=== PATIENT | female | born 1975 | race Caucasian/White ===

== ENCOUNTER 2019-04-14 09:52 | Emergency (ER) | payer BC, OTHER ==
[~2019-04-14] VITALS: Ht 157.5 cm; Wt 100.0 kg
[2019-04-14] MEDS ORDERED: morphine 4 MG/ML inj SYRINge IV ONE (10:30)
[2019-04-14] MEDS ORDERED: LORazepam 2 mg/ml vial IV ONE (10:30)
[2019-04-14] MEDS ORDERED: NO HOME MEDS (11:30)
[2019-04-14 11:38] LABS: CLARITY,URINE SLIGHTLY CLOUDY (Clear); COLOR,URINE YELLOW (Yellow); GLUCOSE, URINE NEGATIVE (Neg); KETONES,URINE NEGATIVE (Neg); LEUKOCYTE ESTERASE ,URINE NEGATIVE (Neg); NITRITES, URINE POSITIVE (Neg); OCCULT BLOOD,URINE NEGATIVE (Neg); PROTEIN,URINE NEGATIVE (Neg); UROBILINOGEN,URINE 0.2 E.U/dL (0.2-1.0)
[2019-04-14 11:39] LABS: UA COLLECTION TYPE CLN CATCH MIDSTREAM
[2019-04-14 11:44] LABS: RBC,URINE 0-2 /HPF (0-2); WBC,URINE 0-4 /HPF (0-4)
[2019-04-14 11:45] LABS: BACTERIA,URINE 4+ /HPF (Neg); SQUAMOUS EPITHELIAL CELL,UR MODERATE /LPF (FEW); TRANSITIONAL EPI CELLS,URINE FEW /HPF
[2019-04-14] MEDS ORDERED: CYCL-1 PO (13:35)
[2019-04-14] MEDS ORDERED: PRED20TA PO (13:35)
[2019-04-14 13:49] VITALS: BP 103/57
== END 2019-04-14 13:54 | disposition home or self-care (01) ==
LOC: ER 09:53
DX: S33.5XXA Sprain of ligaments of lumbar spine, initial encounter (principal); M54.41 Lumbago with sciatica, right side; Z88.0 Allergy status to penicillin; Z79.899 Other long term (current) drug therapy; X50.1XXA Overexertion from prolonged static or awkward postures, initial encounter; Y93.89 Activity, other specified; Y92.89 Other specified places as the place of occurrence of the external cause; Y99.8 Other external cause status
CPT/HCPCS: 72146; 72148; 81001; 96374; 96375; 99284; J2060; J2270

== ENCOUNTER 2022-02-27 11:05 | Inpatient (IN) | payer BC, OTHER ==
[2022-02-27] VITALS (13 sets, daily range): BP systolic 91–108; BP diastolic 51–66
[~2022-02-27] VITALS: Ht 157.5 cm; Wt 68.2 kg
[~2022-02-27 11:05] MED LIST: CYCL-1 PO; NO HOME MEDS
[2022-02-27] MEDS ORDERED: normal saline 1000ML IV soln IVB ONE (12:15)
[2022-02-27] MEDS ORDERED: pantoprazole 40mg IV 80 MG in normal saline 100ml IV soln 100 ML IV ONE (12:15)
[2022-02-27 13:31] LABS: MEAN CORPUSCULAR HEMOGLOBIN 15.5 PG (27.0-31.0); MEAN CORPUSCULAR HGB CONC 26.5 g/dL (33.0-36.5); MEAN CORPUSCULAR VOLUME 58.8 FL (78-98); MEAN PLATELET VOLUME 8.6 FL (7.4-10.4); PLATELET COUNT 150 X10'3 (140-440); RED CELL DISTRIBUTION WIDTH 23.5 % (11.5-14.5); WHITE BLOOD COUNT 4.8 X10'3 (4.5-11.0)
[2022-02-27 13:39] LABS: ALANINE AMINOTRANSFERASE 19 U/L (12-78); ALBUMIN 2.8 G/DL (3.4-5.0); ALBUMIN/GLOBULIN RATIO 0.8 (1.1-1.5); ALKALINE PHOSPHATASE 68 IU/L (46-116); ANION GAP 9 (8-16); ASPARTATE AMINO TRANSFERASE 21 U/L (10-37); BILIRUBIN,TOTAL 0.5 MG/DL (0.1-1.0); BLOOD UREA NITROGEN 11 MG/DL (7-18); BUN/CREATININE RATIO 13.6 (6.6-38.0); CALCIUM 8.1 MG/DL (8.5-10.1); CHLORIDE 105 MMOL/L (99-107); CREATININE 0.81 MG/DL (0.40-0.90); GLUCOSE 89 MG/DL (70-104); POTASSIUM 3.8 MMOL/L (3.5-5.1); SODIUM 139 MMOL/L (135-145); TOTAL CARBON DIOXIDE 25.5 MMOL/L (24-32); TOTAL PROTEIN 6.2 G/DL (6.4-8.2); eGFR 76 ML/MIN
[2022-02-27 13:40] LABS: HEMATOCRIT 12.3 % (35.0-45.0); HEMOGLOBIN 3.3 g/dl (12.0-16.0)
[2022-02-27 14:38] LABS: ANISOCYTOSIS 3+; HYPOCHROMASIA 3+; MICROCYTOSIS 3+; PLATELET ESTIMATE NORMAL; TOTAL CELLS COUNTED 100
[2022-02-27 14:39] LABS: POLYCHROMASIA 2+; TEAR DROP CELLS 1+
[2022-02-27 14:40] LABS: SCHISTOCYTES FEW; TARGET CELLS 1+
[2022-02-27] MEDS ORDERED: POTA8CAP20 PO (15:58)
[2022-02-27] MEDS ORDERED: GABA-530 PO (15:58)
[2022-02-27] MEDS ORDERED: BACL20TA PO (15:58)
[2022-02-27] MEDS ORDERED: HYDR-3973 PO (15:58)
[2022-02-27] MEDS ORDERED: FURO20TA4 PO (15:58)
[2022-02-27] MEDS ORDERED: magnesium Cl slow-release 64mg tablet PO PRN (16:10)
[2022-02-27] MEDS ORDERED: potassium Cl 40MEQ/1/2NS 520ml 520 ML IV PRN (16:10)
[2022-02-27] MEDS ORDERED: magnesium 4gm in 100ml NS 100 ML IV PRN (16:10)
[2022-02-27] MEDS ORDERED: ondansetron/PF 4mg/2ml inj IV PRN (16:10)
[2022-02-27] MEDS ORDERED: acetaminophen 325mg tablet PO PRN (16:10)
[2022-02-27] MEDS ORDERED: magnesium hydroxide 30ml (MOM) UD suspension PO PRN (16:10)
[2022-02-27] MEDS ORDERED: potassium Cl 20 mEq SR tablet PO PRN ×2 (16:10)
[2022-02-27] MEDS ORDERED: mag hydrox/Alum hydrox/simeth 30ml oral suspension PO PRN (16:10)
[2022-02-27] MEDS: normal saline 1000ml 1,000 ML IV SCH (16:25)
[2022-02-27 16:59] LABS: CLARITY,URINE SLIGHTLY CLOUDY (Clear); COLOR,URINE STRAW (Yellow); GLUCOSE, URINE NEGATIVE (Neg); KETONES,URINE NEGATIVE (Neg); LEUKOCYTE ESTERASE ,URINE NEGATIVE (Neg); NITRITES, URINE NEGATIVE (Neg); OCCULT BLOOD,URINE NEGATIVE (Neg); PROTEIN,URINE NEGATIVE (Neg); UROBILINOGEN,URINE 0.2 E.U/dL (0.2-1.0)
[2022-02-27 17:04] LABS: UA COLLECTION TYPE CLN CATCH MIDSTREAM
[2022-02-27 17:05] LABS: BACTERIA,URINE 4+ /HPF (Neg); MUCUS STRANDS NONE SEEN /LPF (Neg); RBC,URINE NONE SEEN /HPF (0-2); SQUAMOUS EPITHELIAL CELL,UR FEW /LPF (FEW); WBC,URINE 0-4 /HPF (0-4)
[2022-02-27] MEDS: K and/or MAG REPLACEMENT MC SCH (20:00)
[2022-02-27] MEDS: docusate sod 100mg capsule PO SCH (20:00)
[2022-02-27] MEDS: pantoprazole 40mg Tablet.DR PO SCH (20:19)
[2022-02-27 21:25] LABS: MEAN CORPUSCULAR HGB CONC 29.6 g/dL (33.0-36.5); MEAN CORPUSCULAR VOLUME 67.5 FL (78-98); MEAN PLATELET VOLUME 8.7 FL (7.4-10.4); PLATELET COUNT 135 X10'3 (140-440); RED BLOOD COUNT 2.95 X10'6 (4.20-5.60); RED CELL DISTRIBUTION WIDTH 30.5 % (11.5-14.5); WHITE BLOOD COUNT 4.5 X10'3 (4.5-11.0)
[2022-02-27 21:32] LABS: HEMATOCRIT 19.9 % (35.0-45.0); HEMOGLOBIN 5.9 g/dl (12.0-16.0)
[2022-02-28] VITALS (12 sets, daily range): BP systolic 93–112; BP diastolic 54–71
[2022-02-28] MEDS: normal saline 1000ml 1,000 ML IV SCH ×3 (02:10→22:10)
[2022-02-28] MEDS ORDERED: gabapentin 400mg capsule PO PRN (04:10)
[2022-02-28] MEDS ORDERED: HYDROcodone/acetaminophen 10/325mg tab PO ONE (04:10)
[2022-02-28 04:37] LABS: BASOPHILS % (AUTO) 0.4 % (0-1); EOSINOPHILS # (AUTO) 0.1 X10'3 (0-0.9); EOSINOPHILS % (AUTO) 1.4 % (0-6); HEMATOCRIT 27.1 % (35.0-45.0); HEMOGLOBIN 8.4 g/dl (12.0-16.0); LYMPHOCYTES # (AUTO) 2.9 X10'3 (1.1-4.8); LYMPHOCYTES % (AUTO) 50.2 % (21-51); MEAN CORPUSCULAR HEMOGLOBIN 22.4 PG (27.0-31.0); MEAN CORPUSCULAR HGB CONC 31.1 g/dL (33.0-36.5); MEAN CORPUSCULAR VOLUME 72.3 FL (78-98); MEAN PLATELET VOLUME 9.3 FL (7.4-10.4); MONOCYTES # (AUTO) 0.4 X10'3 (0-0.9); MONOCYTES % (AUTO) 7.6 % (2-12); NEUTROPHILS # (AUTO) 2.3 X10'3 (1.8-7.7); NEUTROPHILS % (AUTO) 40.4 % (42-75); PLATELET COUNT 138 X10'3 (140-440); RED BLOOD COUNT 3.75 X10'6 (4.20-5.60); RED CELL DISTRIBUTION WIDTH 31.5 % (11.5-14.5); WHITE BLOOD COUNT 5.7 X10'3 (4.5-11.0)
[2022-02-28 04:44] LABS: ALBUMIN 2.7 G/DL (3.4-5.0); ANION GAP 8 (8-16); BLOOD UREA NITROGEN 9 MG/DL (7-18); BUN/CREATININE RATIO 12.2 (6.6-38.0); CALCIUM 8.1 MG/DL (8.5-10.1); CHLORIDE 110 MMOL/L (99-107); CREATININE 0.74 MG/DL (0.40-0.90); GLUCOSE 86 MG/DL (70-104); POTASSIUM 3.9 MMOL/L (3.5-5.1); SODIUM 143 MMOL/L (135-145); TOTAL CARBON DIOXIDE 24.7 MMOL/L (24-32); eGFR 84 ML/MIN
[2022-02-28 05:30] LABS: ANISOCYTOSIS 3+; HYPOCHROMASIA 3+; MICROCYTOSIS 1+; PLATELET ESTIMATE NORMAL; TARGET CELLS FEW; TOTAL CELLS COUNTED 100
[2022-02-28 05:31] LABS: POIKILOCYTOSIS 1+
[2022-02-28] MEDS: K and/or MAG REPLACEMENT MC SCH ×2 (08:00→19:24)
[2022-02-28] MEDS: docusate sod 100mg capsule PO SCH ×2 (10:08→20:00)
[2022-02-28] MEDS: pantoprazole 40mg Tablet.DR PO SCH (10:09)
[2022-02-28] MEDS ORDERED: gabapentin 300mg capsule PO PRN (11:40)
[2022-02-28] MEDS ORDERED: baclofen 10mg tablet PO PRN (11:40)
[2022-02-28 12:39] LABS: % IRON SATURATION 32 % (11-46); IRON 111 UG/DL (49-151); TOTAL IRON BINDING CAPACITY 343 UG/DL (259-388)
[2022-02-28] MEDS: CefTRIAXone/D5W-Rocephin 1gm 50 ML IV SCH (13:42)
[2022-02-28] MEDS: sodium ferric gluc complex inj 125 MG in normal saline 100ml IV soln 100 ML IV SCH (14:23)
[2022-02-28] MEDS: pantoprazole 40MG/NS 100ML BAG 100 ML IV SCH ×2 (16:57→20:00)
--- NOTE | 2022-02-28 18:50 | NUR ---
Problems reprioritized. Patient report given, questions answered & plan of care reviewed with KOBE Du.
[2022-03-01 02:00] VITALS: BP 97/55
[2022-03-01 06:00] VITALS: BP 102/76
[2022-03-01] MEDS ORDERED: levoTHYROXINE 25mcg tablet PO SCH (07:00)
[2022-03-01 07:26] LABS: EOSINOPHILS # (AUTO) 0.2 X10'3 (0-0.9); HEMOGLOBIN 7.7 g/dl (12.0-16.0); MONOCYTES # (AUTO) 0.3 X10'3 (0-0.9); NEUTROPHILS # (AUTO) 2.6 X10'3 (1.8-7.7)
[2022-03-01 07:28] LABS: ALBUMIN 2.3 G/DL (3.4-5.0); ANION GAP 8 (8-16); BASOPHILS % (AUTO) 0.5 % (0-1); BLOOD UREA NITROGEN 9 MG/DL (7-18); BUN/CREATININE RATIO 14.5 (6.6-38.0); CALCIUM 7.8 MG/DL (8.5-10.1); CHLORIDE 111 MMOL/L (99-107); CREATININE 0.62 MG/DL (0.40-0.90); GLUCOSE 78 MG/DL (70-104); LYMPHOCYTES # (AUTO) 1.4 X10'3 (1.1-4.8); LYMPHOCYTES % (AUTO) 31.2 % (21-51); MAGNESIUM 1.9 MG/DL (1.5-2.4); MEAN CORPUSCULAR HEMOGLOBIN 22.2 PG (27.0-31.0); MEAN CORPUSCULAR HGB CONC 30.9 g/dL (33.0-36.5); MONOCYTES % (AUTO) 7.6 % (2-12); NEUTROPHILS % (AUTO) 56.7 % (42-75); PLATELET COUNT 112 X10'3 (140-440); POTASSIUM 3.6 MMOL/L (3.5-5.1); RED BLOOD COUNT 3.47 X10'6 (4.20-5.60); RED CELL DISTRIBUTION WIDTH 31.7 % (11.5-14.5); SODIUM 141 MMOL/L (135-145); TOTAL CARBON DIOXIDE 22.3 MMOL/L (24-32); WHITE BLOOD COUNT 4.6 X10'3 (4.5-11.0); eGFR > 90 ML/MIN
[2022-03-01] MEDS: pantoprazole 40MG/NS 100ML BAG 100 ML IV SCH (07:31)
[2022-03-01] MEDS: docusate sod 100mg capsule PO SCH (07:37)
[2022-03-01] MEDS ORDERED: furosemide 20MG tablet PO SCH (08:00)
[2022-03-01] MEDS: K and/or MAG REPLACEMENT MC SCH (08:00)
[2022-03-01] MEDS: normal saline 1000ml 1,000 ML IV SCH (08:10)
[2022-03-01 09:01] LABS: ANISOCYTOSIS 3+; HYPOCHROMASIA 1+; MICROCYTOSIS 1+; PLATELET ESTIMATE DECREASED
[2022-03-01 09:02] LABS: ELLIPTOCYTES FEW; TARGET CELLS FEW; TEAR DROP CELLS 1+
--- NOTE | 2022-03-01 09:36 | NUR ---
Page Accepted Message: [id number] b laura Osman has a Hemoglobin of 7.7 and hematocrit of 25. [phone]
[2022-03-01] MEDS: CefTRIAXone/D5W-Rocephin 1gm 50 ML IV SCH (09:58)
[2022-03-01 10:00] VITALS: BP 99/54
[2022-03-01 10:32] LABS: OCCULT BLOOD STOOL NEGATIVE (Neg)
[2022-03-01] MEDS: sodium ferric gluc complex inj 125 MG in normal saline 100ml IV soln 100 ML IV SCH (11:04)
--- NOTE | 2022-03-01 11:04 | NUR ---
was waiting for pt iron to come up
--- NOTE | 2022-03-01 11:14 | NUR ---
Page Accepted Message: [id number] b sears, pts wants to talk to you alejandra. is frustrated about not going down fro EGD yet, wants to go home, i was unable to get ahold of them will try again later. dinesh stanton
[2022-03-01] MEDS ORDERED: PANT40TA54 PO (13:27)
[2022-03-01] MEDS ORDERED: ASCO-134 PO (13:27)
[2022-03-01] MEDS ORDERED: FERR325T28 PO (13:27)
[2022-03-01] MEDS ORDERED: LACT1CAP55 PO (13:29)
[2022-03-01] MEDS ORDERED: CIPR250T4 PO (13:29)
[2022-03-01 15:19] VITALS: BP 103/53
--- NOTE | 2022-03-01 15:33 | NUR ---
pt is stable for discharge, iv is dc and cannula is intact, pt took all belongings with her and all discharge info went over, pt will follow up with dr godinez, pt was walked down to the lobby by aide and left in a private vehicle.
== END 2022-03-01 15:27 | disposition home or self-care (01) | DRG 812 ==
LOC: ER 11:06 → ED HOLD 16:09 → PCU 3S 02-28 09:35
PROVIDERS: ADMIT Family Medicine; ATTEND Family Medicine
PROC: 30233N1 Transfusion of Nonautologous Red Blood Cells into Peripheral Vein, Percutaneous Approach (ICD-10-PCS; principal; 2022-02-27)
DX: D50.9 Iron deficiency anemia, unspecified (principal); K90.9 Intestinal malabsorption, unspecified; G89.4 Chronic pain syndrome; M54.9 Dorsalgia, unspecified; Z83.2 Family history of diseases of the blood and blood-forming organs and certain disorders involving the immune mechanism; Z86.16 Personal history of COVID-19; Z87.442 Personal history of urinary calculi; Z90.49 Acquired absence of other specified parts of digestive tract; Z98.84 Bariatric surgery status; Z88.0 Allergy status to penicillin; Z88.8 Allergy status to other drugs, medicaments and biological substances; Z87.440 Personal history of urinary (tract) infections; Z79.899 Other long term (current) drug therapy
CPT/HCPCS: 36415; 36430; 71045; 80048; 80053; 81001; 82272; 82728; 83540; 83550; 83735; 84439; 84443; 85007; 85008; 85025; 85027; 86885; 86900; 86901; 86920; 87077; 87081; 87088; 87186; 93005; 96365; 99285; C9113; G0378; J0696; J2916; J3490; J7030; J7050; P9016